=== PATIENT | male | born 2000 | race Caucasian/White ===

== ENCOUNTER 2022-02-24 00:24 | Outpatient (CLI) | payer OTHER, SELFPAY | END 2022-02-24 00:25 | disposition home or self-care (01) | LOC: AMB 03-23 13:36 | PROVIDERS: Visit Provider Family Medicine | DX: F10.129 Alcohol abuse with intoxication, unspecified (principal) | CPT/HCPCS: A0425; A0427 ==

== ENCOUNTER 2022-02-24 00:52 | Emergency (ER) | payer OTHER, SELFPAY ==
[2022-02-24] VITALS (9 sets, daily range): BP systolic 89–118; BP diastolic 52–89; PULSE 70–99; RESP 12–18; TEMP 37.1; O2SAT 88–100
[2022-02-24] MEDS: LACTATED RINGERS 1000 ML 1,000 ML 500 ML IV (00:59)
[2022-02-24] MEDS: ONDANSETRON 2 MG/ML inj 4 MG IVP (00:59)
--- NOTE | 2022-02-24 01:19 | ED.NURSE ---
Sats down to 88% RA. Encouraged pt to breathe, but sats not improving. Pt placed on 2 LPM oxygen via NC. Sats up to 100%.
--- NOTE | 2022-02-24 03:30 | ED.NURSE ---
Pt takes off nasal cannula. Sats at 98% on room air. Discontinued oxygen.
--- NOTE | 2022-02-24 05:50 | ED_ITS ---
HPI - Alcohol General Chief Complaint: Alcohol/Intoxication Stated Complaint: ETOH Time Seen by Provider: 02/24/22 00:54 Source: patient and EMS Mode of arrival: EMS Limitations: no limitations History of Present Illness HPI narrative: Document created during EMR down time in Microsoft Word, paced into record Progress note on Manuel cortes 21-year-old male transitioning to female that presents to the emergency department by EMS.? He reports he started drinking Tequila around 10:00 p.m., arrives a little before 1:00 a.m..? Reports that he walked to a random [employer] party, announce that he had drank too much and requested that they call 911 which was done.? Of note walked in on his own accord to the constitution party and was conversing normally.? Reports he has been drinking Tequila, large amounts and throughout.? Denies any intent of self-harm.? Denies use of any illicit substances, edibles, marijuana, hallucinogens or mixing with any unusual prescriptions.? Does report that he takes an antidepressant but does not remember which 1.? Has vomited a few times at the constitution party and for EMS arrival.? EMS arrived they do place an IV and start some IV fluids and transport to the emergency department.? He is able answer my questions well.? Has not taken any anti nausea medicine, Tylenol, ibuprofen, no intent of self-harm.? Denies chronic alcoholism.? Past medical history states is notable for depression anxiety does see a provider through [facility] is prescribed an antidepressant.? Denies any surgeries, reports alcohol intoxication but with no illicit substances.? 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 ROS is notable for nausea and generally feeling unwell, denies any other concerns times 12 systems.? On exam, vital signs are stable.? No hypotension, tachycardia or fever.? Generally he is awake, alert not in distress.? Intoxicated with slight slurring and difficulty focusing on my face.? The head shows no signs of injury.? The eyes have pupils are equal round, reactive to light normal appearing extraocular movements.? The oropharynx with no signs of trauma.? Normal dentition.? Moist mucous membranes.? Lips are acyanotic.? The neck with normal range of motion.? Chest and clavicles without deformity.? Heart with regular rate rhythm, no murmurs rubs or gallops.? Lungs with good air entry in all lung jordan, no wheezes rales or rhonchi.? Abdomen is soft and nondistended liver and spleen are not enlarged.? No masses.? The extremities have no signs of edema.? Moves upper and lower extremities and rolls over on command with no difficulty.? No focal deficits.? Mood behavior and affect show mild intoxication but otherwise appropriate.? No agitation or combativeness. Hospital course:? Patient with signs of mild intoxication but no critical illness.? I recommend IV fluids, IV Zofran and observation. ?No lab studies or imaging recommended at this time will observe and monitor.? Anticipate but discharged back to [place] in a few hours. Assessment acute alcohol intoxication Plan:? IV fluids, Zofran anticipating discharge after reassessment.? Related Data Home Medications Medication Instructions Recorded Confirmed antidepressant 02/24/22 estradiol PO 02/24/22 Allergies Allergy/AdvReac Type Severity Reaction Status Date / Time No Known Drug Allergies Allergy Verified 02/24/22 04:26 [facility] Social History Smoking Status: Current every day smoker What tobacco products do you use: cigarettes Do you use any of these nicotine containing products: Vaping Products Second hand tobacco smoke exposure: No How often do you have a drink containing alcohol: 4 or more times a week How many standard drinks containing alcohol do you have on a typical day: 1 or 2 AUDIT-C Alcohol total score: 4 Non-prescribed substance use: denies use Exam Const: Vital Signs, click to edit/add: Vital Signs - 24 hr 02/24/22 00:52 02/24/22 00:53 02/24/22 01:19 Temperature 98.8 F Pulse Rate [Left P ulse Oximeter] 94 99 Respiratory Rate 16 16 Blood Pressure [Le ft Upper Arm] 118/89 117/85 Pulse Oximetry 99 100 88 Oxygen Delivery Me thod Room Air Room Air Room Air Oxygen Flow Rate 02/24/22 01:23 02/24/22 02:00 02/24/22 01:00 Temperature Pulse Rate [Left P ulse Oximeter] 77 95 Respiratory Rate 12 12 Blood Pressure [Le ft Upper Arm] 89/52 L 112/84 Pulse Oximetry 100 98 94 Oxygen Delivery Me thod Nasal Cannula Nasal Cannula Room Air Oxygen Flow Rate 2 2 02/24/22 03:00 02/24/22 04:00 02/24/22 01:23 Temperature Pulse Rate [Left P ulse Oximeter] 75 70 Respiratory Rate 12 12 Blood Pressure [Le ft Upper Arm] 104/68 Pulse Oximetry 99 98 100 Oxygen Delivery Me thod Nasal Cannula Room Air Nasal Cannula Oxygen Flow Rate 2 2 Course Vital Signs Vital signs: Initial Vital Signs Temperature 98.8 F 02/24/22 00:52 Temperature Source Temporal Artery Scan 02/24/22 00:52 Pulse Rate 94 02/24/22 00:52 Pulse Rhythm 02/24/22 00:52 Respiratory Rate 16 02/24/22 00:52 Blood Pressure 118/89 02/24/22 00:52 Blood Pressure Mean 98 02/24/22 00:52 Blood Pressure Position Semi-Fowlers 02/24/22 00:52 Pulse Oximetry 99 02/24/22 00:52 Oxygen Delivery Method 02/24/22 00:52 Vital Signs Temperature 98.8 F 02/24/22 00:52 Pulse Rate 94 02/24/22 00:52 Respiratory Rate 16 02/24/22 00:52 Blood Pressure 118/89 02/24/22 00:52 Pulse Oximetry 99 02/24/22 00:52 Oxygen Delivery Method 02/24/22 00:52 Temperature 98.8 F 02/24/22 00:52 Pulse Rate 70 02/24/22 04:00 Respiratory Rate 12 02/24/22 04:00 Blood Pressure 104/68 02/24/22 03:00 Pulse Oximetry 98 02/24/22 04:00 Oxygen Delivery Method 02/24/22 04:00 Oxygen Flow Rate 2 02/24/22 03:00 MDM - Alcohol MDM Narrative Medical decision making narrative: Patient observed, marked improvement in sobriety over a few hours. At the time of discharge, able to answer questions, ambulate to the bathroom without difficulty. Will call [employer] for right home. Discharge Plan Discharge Clinical Impression: Alcoholic intoxication Patient Disposition: Home, Self-Care Condition: Improved Instructions: Alcohol Intoxication (ED) Additional Instructions: Expected to have hangover symptoms today. It is okay to use Tylenol and/or ibuprofen. Drink lots of fluids. I wish you would not drink so much in 1 sitting. Be binge drinking can have long-term implications to your health and safety. Please talk to a counselor at your college if the drinking behaviors persist. Activity Level: No Restrictions Discharge Diet: Regular Prescriptions: No Action estradiol PO antidepressant Stand Alone Forms: [employer] Info Instructions
--- NOTE | 2022-02-24 06:34 | ED.NURSE ---
Pt awakened and up to bathroom, ambulatory. No pain or nausea reported. Pt states she feels much better.
== END 2022-02-24 06:50 | disposition home or self-care (01) ==
LOC: ED 06:48
PROVIDERS: Emergency Provider Family Medicine
DX: F10.129 Alcohol abuse with intoxication, unspecified (principal)
CPT/HCPCS: 96374; 99282; 99283; J2405; J7120

== ENCOUNTER 2022-08-09 04:06 | Emergency (ER) | payer OTHER, SELFPAY ==
[2022-08-09 04:17] VITALS: BP 112/61; PULSE 77; RESP 18; TEMP 36.3; O2SAT 99; BMI 19.9
[2022-08-09] MEDS: 0.9 % SODIUM CHLORIDE 1000 ml 1,000 ML 500 ML IV (05:00)
[2022-08-09] MEDS: KETOROLAC 30 MG/ML inj IVP (05:00)
[2022-08-09 05:03] LABS: Basophils Percent Auto 0.4 % (0.0-3.0); Eosinophils Percent Auto 1.4 % (0.0-7.0); Hemoglobin* 11.7 gm/dL (13.5-17.5); Immature Granulocytes Pct Auto 0.1 %; Lymphocytes Percent Auto 24.5 % (20-44); Mean Corpuscular HGB Conc 33 gm/dL (32-36); Mean Corpuscular Hemoglobin 30 pg (26-34); Mean Corpuscular Volume 90 fL (80-100); Monocytes Percent Auto 7.6 % (0.0-11.0); Platelet Count* 343 K/uL (140-440); RDW Coefficient of Variation % 12.3 % (11.5-15.5); Red Blood Count 3.88 m/uL (4.30-5.90); White Blood Count* 14.82 K/uL (4.50-11.00)
[2022-08-09 05:07] LABS: Slide Review Reflex No
--- NOTE | 2022-08-09 05:13 | ED_ITS ---
HPI - General Adult General Date Seen: 08/09/22 Chief complaint: Abdominal Pain Stated complaint: abdominal pain & back pain Time Seen by Provider: 08/09/22 04:33 Source: patient Mode of arrival: ambulatory Limitations: no limitations History of Present Illness HPI narrative: Patient is a 21-year-old male who has been having abdominal pain intermittently for the past several months. This typically comes on if he eats something fatty or greasy. Both of his parents have had cholecystectomies. He denies symptoms of acid reflux. When he gets this pain he typically makes himself vomit and that seems to help. He denies diarrhea or constipation. No hematemesis. Today he ate peanut butter and drank whole milk but did not have anything else. No fevers or chills. No dysuria. He has never had a gallbladder ultrasound. Other than his antidepressant and his hormone therapy he does not take any other medications regularly. He is transitioning male to female. Related Data Home Medications Medication Instructions Recorded Confirmed antidepressant 02/24/22 estradiol PO 02/24/22 estradiol valerate 40 mg/mL mg IM 08/09/22 intramuscular oil progesterone micronized 200 mg 200 mg PO QPM 08/09/22 08/09/22 capsule Allergies Allergy/AdvReac Type Severity Reaction Status Date / Time No Known Drug Allergies Allergy Verified 02/24/22 04:26 Review of Systems Narrative: Review of systems is as outlined above otherwise noted to be negative. PFSH PFSH Social History Smoking Status: Former smoker What tobacco products do you use: cigarettes Smoking quit date/years: <= 15 years ago Do you use any of these nicotine containing products: Vaping Products Second hand tobacco smoke exposure: No How often do you have a drink containing alcohol: 4 or more times a week How many standard drinks containing alcohol do you have on a typical day: 1 or 2 AUDIT-C Alcohol total score: 4 Non-prescribed substance use: marijuana (any form) service: No Exam Narrative: Exam Narrative: Vitals noted. He is restless. HEENT: Conjunctiva clear. Neck is supple without adenopathy, thyromegaly, ca rotid bruit. Lungs: Clear to auscultation in all jordan. No wheezes, rales, rhonchi. Heart: Regular rate and rhythm without murmur. Abdomen: Soft and nontender. No guarding, rigidity, rebound. Bowel sounds are normal. No palpable masses. Extremities: No cyanosis or edema. Good distal pulses. Skin: No abnormalities noted of the exposed skin. Neurologic: Awake, alert, fully oriented. Neurologic exam is nonfocal. Const: Vital Signs, click to edit/add: Vital Signs - 24 hr 08/09/22 04:17 08/09/22 07:11 Temperature 97.4 F L Pulse Rate [Pulse Oximeter] 77 66 Respiratory Rate 18 18 Blood Pressure [Le ft Upper Arm] 112/61 113/71 Pulse Oximetry 99 98 Oxygen Delivery Me thod Room Air Room Air Course Course Hospital Course: Patient is seen and examined. He is restless and uncomfortable. Labs are ordered. Reevaluation(s) Reevaluation #1: Patient feels better after the fluids and Toradol. The labs have all returned normal. We discussed a gallbladder ultrasound could be set up by her PCP. Vital Signs Vital signs: Initial Vital Signs Temperature 97.4 F L 08/09/22 04:17 Temperature Source Temporal Artery Scan 08/09/22 04:17 Pulse Rate 77 08/09/22 04:17 Pulse Rhythm Regular 08/09/22 04:17 Respiratory Rate 18 08/09/22 04:17 Blood Pressure 112/61 08/09/22 04:17 Blood Pressure Mean 78 08/09/22 04:17 Pulse Oximetry 99 08/09/22 04:17 Oxygen Delivery Method Room Air 08/09/22 04:17 Vital Signs Temperature 97.4 F L 08/09/22 04:17 Pulse Rate 77 08/09/22 04:17 Respiratory Rate 18 08/09/22 04:17 Blood Pressure 112/61 08/09/22 04:17 Pulse Oximetry 99 08/09/22 04:17 Oxygen Delivery Method Room Air 08/09/22 04:17 Temperature 97.4 F L 08/09/22 04:17 Pulse Rate 66 08/09/22 07:11 Respiratory Rate 18 08/09/22 07:11 Blood Pressure 113/71 08/09/22 07:11 Pulse Oximetry 98 08/09/22 07:11 Oxygen Delivery Method Room Air 08/09/22 07:11 Medical Decision Making Lab Data Labs: Lab Results 08/09/22 08/09/22 Range/Units 04:50 04:57 WBC 14.82 H (4.50-11.00) K/uL RBC 3.88 L (4.30-5.90) m/uL Hgb 11.7 L (13.5-17.5) gm/dL Hct 35.0 L (37.0-53.0) % MCV 90 (80-100) fL MCH 30 (26-34) pg MCHC 33 (32-36) gm/dL RDW Coeff of Ana Luisa 12.3 (11.5-15.5) % Plt Count 343 (140-440) K/uL Neut % (Auto) 66.0 (42.0-72.0) % Lymph % (Auto) 24.5 (20-44) % [place] % (Auto) 7.6 (0.0-11.0) % Eos % (Auto) 1.4 (0.0-7.0) % Baso % (Auto) 0.4 (0.0-3.0) % Neut # (Auto) 9.80 H (1.7-7.0) K/uL Lymph # (Auto) 3.60 H (0.90-2.90) K/uL [place] # (Auto) 1.10 H (0.00-0.90) K/UL Eos # (Auto) 0.20 (0.00-0.50) K/uL Baso # (Auto) 0.10 (0.00-0.30) K/uL Sodium 138 (135-149) mmol/L Potassium 3.5 L (3.6-5.1) mmol/L Chloride 106 (96-114) mmol/L Carbon Dioxide 26 (20-32) mmol/L BUN 17 (5-24) mg/dL Creatinine 0.6 (0.5-1.5) mg/dL Estimated Creat Clear 192.04 Estimated GFR 140 ml/min Glucose 99 (60-115) mg/dL Calcium 8.7 (8.4-10.6) mg/dL Total Bilirubin 0.5 (0.1-1.5) mg/dL Direct Bilirubin 0.1 (0.0-0.5) mg/dL AST 18 (12-35) U/L ALT 15 (4-50) U/L Alkaline Phosphatase 77 (40-150) U/L Total Protein 7.4 (6.0-8.3) g/dL Albumin 4.1 (3.3-5.0) g/dL Lipase 83 (23-300) U/L Discharge Plan Discharge Clinical Impression: Abdominal pain Patient Disposition: Home, Self-Care Condition: Improved Instructions: Abdominal Pain (ED) Additional Instructions: Avoid spicy or greasy foods. Set up an appt at the clinic to discuss a gallbladder Ultrasound. Prescriptions: No Action estradiol PO antidepressant progesterone micronized 200 mg capsule 200 mg PO QPM estradiol valerate 40 mg/mL oil IM Follow Up/Referrals: Provider,Not a Local [Primary Care Provider] - Stand Alone Forms: [employer] Info Instructions
[2022-08-09 05:18] LABS: Albumin* 4.1 g/dL (3.3-5.0); Chloride* 106 mmol/L (96-114); Potassium* 3.5 mmol/L (3.6-5.1); Sodium* 138 mmol/L (135-149)
[2022-08-09 05:20] LABS: Creatinine* 0.6 mg/dL (0.5-1.5); Est. Creatinine Clearance* 192.04; Estimated Glomerular Filt Rate 140 ml/min
[2022-08-09 05:21] LABS: Alanine Aminotransferase* 15 U/L (4-50); Alkaline Phosphatase* 77 U/L (40-150); Aspartate Amino Transferase* 18 U/L (12-35); Bilirubin Direct* 0.1 mg/dL (0.0-0.5); Bilirubin Total* 0.5 mg/dL (0.1-1.5); Blood Urea Nitrogen* 17 mg/dL (5-24); Calcium* 8.7 mg/dL (8.4-10.6); Carbon Dioxide* 26 mmol/L (20-32); Glucose* 99 mg/dL (60-115); Lipase* 83 U/L (23-300); Total Protein* 7.4 g/dL (6.0-8.3)
[2022-08-09 07:11] VITALS: BP 113/71; PULSE 66; RESP 18; O2SAT 98
== END 2022-08-09 07:14 | disposition home or self-care (01) ==
PROVIDERS: Emergency Provider Family Medicine
DX: R10.9 Unspecified abdominal pain (principal)
CPT/HCPCS: 36415; 80048; 80076; 83690; 85025; 96361; 96374; 99282; 99284; J1885; J7030

== ENCOUNTER 2022-08-13 15:40 | Outpatient (CLI) | payer OTHER, SELFPAY | END 2022-08-13 15:41 | disposition home or self-care (01) | PROVIDERS: Visit Provider Internal Medicine | DX: R10.11 Right upper quadrant pain (principal); Z78.9 Other specified health status | CPT/HCPCS: 82671; 84144 ==

== ENCOUNTER 2022-09-26 01:49 | Emergency (ER) | payer OTHER, SELFPAY ==
--- NOTE | 2022-09-26 02:00 | ED_ITS ---
HPI - General Adult General Date Seen: 09/26/22 Chief complaint: Abdominal Pain Stated complaint: Gallstone pain Time Seen by Provider: 09/26/22 02:00 Source: patient, RN notes reviewed and old records reviewed Mode of arrival: ambulatory Limitations: no limitations History of Present Illness HPI narrative: Mari is a very pleasant 21-year-old biological male transitioning to female preferring she/her pronouns with a history of cholelithiasis and planned cholecystectomy today who comes to the emergency room for evaluation regarding abdominal pain. Patient notes that she received an ultrasound 1 month ago and is going to take the gallbladder out this morning. A few hours ago she awoke with nausea and abdominal pain and proceeded to the emergency room. Of note start has also been experiencing cold-like symptoms and did have a fever yesterday. She has had some coughing but no shortness of breath or chest pain. She did not do a home test. Abdominal pain is in the epigastric and right upper quadrant area. Not radiating at this time. It is associated with nausea. She has not tried any pain medications at home. Related Data Home Medications Medication Instructions Recorded Confirmed estradiol PO 02/24/22 08/28/22 estradiol valerate 40 mg/mL mg IM 08/09/22 08/28/22 intramuscular oil progesterone micronized 200 mg 200 mg PO QPM 08/09/22 08/28/22 capsule Previous Rx's Medication Instructions Recorded escitalopram oxalate 10 mg tablet 10 mg PO QDAY #7 tabs 08/28/22 (Lexapro) escitalopram oxalate 20 mg tablet 20 mg PO QDAY #90 tabs 08/28/22 (Lexapro) estradiol 2 mg tablet 2 mg PO QDAY 3 months #90 tabs 08/28/22 amoxicillin 875 mg-potassium 1 tab PO BID #30 tabs 09/26/22 clavulanate 125 mg tablet hydrocodone 5 mg-acetaminophen 325 1 tab PO Q4-6H PRN pain #10 tabs 09/26/22 mg tablet ondansetron 4 mg disintegrating 4 mg PO Q8H PRN nausea and 09/26/22 tablet vomiting #10 tabs Allergies Allergy/AdvReac Type Severity Reaction Status Date / Time No Known Drug Allergies Allergy Verified 08/28/22 13:39 Review of Systems Status of ROS: Reports: 10 or more systems reviewed and unremarkable except as noted in History and below Const: Reports: fever; Denies: chills or fatigue ENMT: Reports: nasal congestion; Denies: throat pain, neck pain, throat swelling, difficulty swallowing or hoarseness Cardio: Denies: chest pain, swelling of feet/ankles or shortness of breath with exertion Resp: Reports: cough; Denies: shortness of breath GI: Reports: abdominal pain and nausea; Denies: vomiting, diarrhea or difficulty swallowing : Denies: painful urination Musculo: Denies: back pain or neck pain Integ/Breast: Denies: rash Neuro: Denies: headache Endo: Denies: fatigue Allergy/Immuno: Denies: throat swelling PFSH PFSH Medical History Current every day cannabis vaping ?F12.90 - Cannabis use, unspecified, uncomplicated (ICD-10) Major depression ?F32.9 - Major depressive disorder, single episode, unspecified (ICD-10) Generalized anxiety disorder ?F41.1 - Generalized anxiety disorder (ICD-10) Transgender ?Z78.9 - Other specified health status (ICD-10) Surgical History History of surgery (03/2020) ?Z98.890 - Other specified postprocedural states (ICD-10) H/O pelvic surgery (06/2019) ?Z98.890 - Other specified postprocedural states (ICD-10) Family History Father Depression Other Alcohol dependence Diabetes High blood pressure High cholesterol Social History Narrative: Single, works at [employer], no kids Lifetime nonsmoker No alcohol use Daily marijuana use Smoking Status: Former smoker What tobacco products do you use: cigarettes Smoking quit date/years: <= 15 years ago Do you use any of these nicotine containing products: Vaping Products Second hand tobacco smoke exposure: No How often do you have a drink containing alcohol: 4 or more times a week How many standard drinks containing alcohol do you have on a typical day: 1 or 2 AUDIT-C Alcohol total score: 4 Non-prescribed substance use: marijuana (any form) Little interest or pleasure in doing things: more than half the days Feeling down, depressed, or hopeless: several days service: No Exam Narrative: Exam Narrative: Alert and oriented. No acute distress. External ears eyes nose clear. Oral cavity with moist mucous membranes. Lips are moist. Neck is supple. Heart with regular rate and rhythm and lungs are clear bilaterally. Abdomen with epigastric and right upper quadrant discomfort with palpation. No masses palpated. No abdominal distension. Abdomen is otherwise soft. Lower extremities without edema. Const: Vital Signs, click to edit/add: Vital Signs - 24 hr 09/26/22 02:14 09/26/22 06:00 Temperature 97.5 F L Pulse Rate [Right Pulse Oximeter] 75 70 Respiratory Rate 16 16 Blood Pressure [Ri ght Upper Arm] 118/80 120/54 L Pulse Oximetry 99 100 Oxygen Delivery Me thod Room Air Room Air Documenting provider has reviewed patient's vital signs: yes Course Course Hospital Course: At this time patient has surgery scheduled for this morning. Will continue NPO status, place IV and give 1 L of fluids, Toradol 15 mg and Zofran 4 mg. Will check labs this morning to include CBC, comprehensive panel, CRP, and lipase. In terms of the recent illness will do chest x-ray and COVID swab. Reevaluation(s) Reevaluation #1: White count is normal but CRP is elevated at 3.4. Chest x-ray shows no evidence of pneumonia. Potassium low at 3.1. Other LFTs within normal limits. Given the increasing pain, known evidence of stones will treat patient with Zosyn 3.375 g IV. Potassium 40 mEq p.o. Vital Signs Vital signs: Initial Vital Signs Temperature 97.5 F L 09/26/22 02:14 Temperature Source Temporal Artery Scan 09/26/22 02:14 Pulse Rate 75 09/26/22 02:14 Pulse Rhythm Regular 09/26/22 02:14 Respiratory Rate 16 09/26/22 02:14 Blood Pressure 118/80 09/26/22 02:14 Blood Pressure Mean 92 09/26/22 02:14 Blood Pressure Position Sitting 09/26/22 02:14 Pulse Oximetry 99 09/26/22 02:14 Oxygen Delivery Method Room Air 09/26/22 02:14 Vital Signs Temperature 97.5 F L 09/26/22 02:14 Pulse Rate 75 09/26/22 02:14 Respiratory Rate 16 09/26/22 02:14 Blood Pressure 118/80 09/26/22 02:14 Pulse Oximetry 99 09/26/22 02:14 Oxygen Delivery Method Room Air 09/26/22 02:14 Temperature 97.5 F L 09/26/22 02:14 Pulse Rate 70 09/26/22 06:00 Respiratory Rate 16 09/26/22 06:00 Blood Pressure 120/54 L 09/26/22 06:00 Pulse Oximetry 100 09/26/22 06:00 Oxygen Delivery Method Room Air 09/26/22 06:00 Medical Decision Making MDM Narrative Medical decision making narrative: 1. Cholelithiasis-now with increasing pain and elevated CRP. Will treat with Zosyn 3.375 g IV. Will alert OR staff to patient's presence in the ED. patient was supposed to present at 0615. LFTs within normal limits. 2. Recent cold congestion-patient does test positive for COVID. O2 sats within normal limits. Recommend deep breathing, sleeping prone or on her side. Seek medical attention for shortness of breath or respiratory distress. 3. Disposition-admit to same-day surgery. Will plan on speaking to the surgeon for patient upon their arrival. In patient's COVID positive status, surgery and anesthesia feel would be best to delay patient's surgery for 4 weeks. Patient is feeling much improved and will be discharged home at this time. Patient did receive Zosyn in the ED and will continue on Augmentin 875 p.o. b.i.d.. I have given her 15 days worth of medications. She will need to follow-up or contact surgery for continued antibiotic if needed. Pain will be controlled with ibuprofen 600 mg p.o. t.i.d. p.r.n.. For continued pain hydrocodone/acetaminophen 5/325 1-2 tabs p.o. q.4-6 hours p.r.n. 10. Issued. Further pain medications will need to go through primary MD or surgery. Finally Zofran 4 mg ODT Q 8 hours p.r.n. 10. Via a pharmacy. Discussed with patient's importance of returning to the ER for fever, persistent vomiting, increasing pain, worsening symptoms. In spite of her COVID she may need to have the gallbladder out sooner rather than later. She does appear to understand this. Medical Records Medical records reviewed: Yes I reviewed the patient's medical records Lab Data Lab results reviewed: Yes I reviewed the patient's lab results Labs: Lab Results 09/26/22 Range/Units 03:20 WBC 5.64 (4.50-11.00) K/uL RBC 4.08 L (4.30-5.90) m/uL Hgb 12.2 L (13.5-17.5) gm/dL Hct 36.6 L (37.0-53.0) % MCV 90 (80-100) fL MCH 30 (26-34) pg MCHC 33 (32-36) gm/dL RDW Coeff of Ana Luisa 11.9 (11.5-15.5) % Plt Count 159 (140-440) K/uL Neut % (Auto) 69.8 (42.0-72.0) % Lymph % (Auto) 15.6 L (20-44) % [place] % (Auto) 14.0 H (0.0-11.0) % Eos % (Auto) 0.2 (0.0-7.0) % Baso % (Auto) 0.4 (0.0-3.0) % Neut # (Auto) 3.94 (1.7-7.0) K/uL Lymph # (Auto) 0.90 (0.90-2.90) K/uL [place] # (Auto) 0.80 (0.00-0.90) K/UL Eos # (Auto) 0.01 (0.00-0.50) K/uL Baso # (Auto) 0.02 (0.00-0.30) K/uL Sodium 138 (135-149) mmol/L Potassium 3.1 L (3.6-5.1) mmol/L Chloride 105 (96-114) mmol/L Carbon Dioxide 22 (20-32) mmol/L BUN 9 (5-24) mg/dL Creatinine 0.9 (0.5-1.5) mg/dL Estimated GFR 124 ml/min Glucose 100 (60-115) mg/dL Calcium 8.7 (8.4-10.6) mg/dL Total Bilirubin 0.7 (0.1-1.5) mg/dL AST 27 (12-35) U/L ALT 27 (4-50) U/L Alkaline Phosphatase 84 (40-150) U/L C-Reactive Protein 3.4 H (0.5-1.0) mg/dL Total Protein 7.5 (6.0-8.3) g/dL Albumin 4.3 (3.3-5.0) g/dL Lipase 98 (23-300) U/L SARS-CoV-2 (PCR) POSITIVE SARS-CoV-2 A (Negative) Influenza Type A (PCR) Negative PCR FLU A (Negative) Influenza Type B (PCR) Negative PCR FLU B (Negative) RSV (PCR) Negative PCR RSV (Negative) Imaging Data Chest x-ray: Attestation: I have reviewed the pertinent imaging results. My impression: I do not note any infiltrates. Radiologist's impression: Cardiovascular and mediastinum: Heart size and vasculature are normal in caliber and appearance.? Mediastinum is within normal limits.? Lungs and pleural space: Lungs are clear.? No sign of infiltrate or mass.? No sign of pleural effusion.? No pneumothorax.? Bones and soft tissues: No significant findings. Discharge Plan Discharge Clinical Impression: COVID Abdominal pain Qualifiers: Abdominal location: right upper quadrant Qualified Code(s): R10.11 - Right upper quadrant pain Cholelithiasis Qualifiers: Cholelithiasis location: gallbladder Cholecystitis presence: without cholecystitis Biliary obstruction: without biliary obstruction Qualified Code(s): K80.20 - Calculus of gallbladder without cholecystitis without obstruction Patient Disposition: Home, Self-Care Condition: Improved Additional Instructions: At this time current guidelines suggest waiting at least 4 weeks after an active COVID infection for surgery. We are going to try to treat you with antibiotics, anti nausea medication and pain medication in an effort to avoid surgery as long as possible. For pain you may use ibuprofen 600 mg every 8 hours as needed. For pain that is persistent, please use Honeydew which is a combination medication of Tylenol and a narcotic called hydrocodone. This can be addictive so use sparingly and only as needed. Zofran is an anti nausea medication that may be used for nausea or vomiting. Finally, will use Augmentin as an antibiotic. You will receive a call from the surgery clinic to reschedule your surgery. If you start developing high fever, continued pain, persistent vomiting you will need to come back to the emergency room for evaluation. For COVID, try to sleep on your stomach or side. Seek medical attention for difficulty breathing and as needed. Prescriptions: New ondansetron 4 mg tablet,disintegrating 4 mg PO Q8H PRN (Reason: nausea and vomiting) Qty: 10 0RF amoxicillin-pot clavulanate 875-125 mg tablet 1 tab PO BID Qty: 30 0RF hydrocodone-acetaminophen 5-325 mg tablet 1 tab PO Q4-6H PRN (Reason: pain) Qty: 10 0RF Rx Instructions: You may use 1-2 tabs every 4-6 hours as needed. No Action estradiol 2 mg tablet 2 mg PO QDAY 90 Days Qty: 90 1RF Rx Instructions: off 1 week; repeat cycle escitalopram oxalate [Lexapro] 10 mg tablet 10 mg PO QDAY Qty: 7 0RF escitalopram oxalate [Lexapro] 20 mg tablet 20 mg PO QDAY Qty: 90 4RF Rx Instructions: Begin after finishing 10 mg / day dose estradiol PO progesterone micronized 200 mg capsule 200 mg PO QPM estradiol valerate 40 mg/mL oil IM Follow Up/Referrals: Maria Dolores Thao MD [Primary Care Provider] - Stand Alone [facility]: [facility] Info Inst[facility]
[2022-09-26 02:14] VITALS: BP 118/80; PULSE 75; RESP 16; TEMP 36.4; O2SAT 99
--- NOTE | 2022-09-26 02:44 | CRLHL7_ITS ---
For Patients: As a result of the Century Cures Act, medical imaging exams and procedure reports are released immediately into your electronic medical record. You may view this report before your referring provider. If you have questions, please contact your health care provider. Indication: Cough Technique: Chest 1 view Comparison: None Findings/Impression: Cardiovascular and mediastinum: Heart size and vasculature are normal in caliber and appearance. Mediastinum is within normal limits. Lungs and pleural space: Lungs are clear. No sign of infiltrate or mass. No sign of pleural effusion. No pneumothorax. Bones and soft tissues: No significant findings. Dictated by Rica Forbes MD @ 09/26/2022 4:02:16 AM (Electronically Signed)
[2022-09-26] MEDS: ONDANSETRON 2 MG/ML inj 4 MG IVP (03:24)
[2022-09-26] MEDS: 0.9 % SODIUM CHLORIDE 1000 ml 1,000 ML IV (03:24)
[2022-09-26] MEDS: KETOROLAC 15 MG/ML inj IVP (03:24)
[2022-09-26 03:40] LABS: Basophils Absolute Auto 0.02 K/uL (0.00-0.30); Basophils Percent Auto 0.4 % (0.0-3.0); Eosinophils Absolute Auto 0.01 K/uL (0.00-0.50); Eosinophils Percent Auto 0.2 % (0.0-7.0); Hematocrit 36.6 % (37.0-53.0); Hemoglobin* 12.2 gm/dL (13.5-17.5); Lymphocytes Percent Auto 15.6 % (20-44); Mean Corpuscular HGB Conc 33 gm/dL (32-36); Mean Corpuscular Hemoglobin 30 pg (26-34); Mean Corpuscular Volume 90 fL (80-100); Neutrophils Absolute Auto 3.94 K/uL (1.7-7.0); Neutrophils Percent Auto 69.8 % (42.0-72.0); Platelet Count* 159 K/uL (140-440); RDW Coefficient of Variation % 11.9 % (11.5-15.5); Red Blood Count 4.08 m/uL (4.30-5.90); White Blood Count* 5.64 K/uL (4.50-11.00)
[2022-09-26 03:43] LABS: Slide Review Reflex No
[2022-09-26 03:53] LABS: Albumin* 4.3 g/dL (3.3-5.0); Chloride* 105 mmol/L (96-114); Sodium* 138 mmol/L (135-149)
[2022-09-26 03:54] LABS: Potassium* 3.1 mmol/L (3.6-5.1)
[2022-09-26 03:56] LABS: Alkaline Phosphatase* 84 U/L (40-150); Aspartate Amino Transferase* 27 U/L (12-35); Bilirubin Total* 0.7 mg/dL (0.1-1.5); Carbon Dioxide* 22 mmol/L (20-32); Creatinine* 0.9 mg/dL (0.5-1.5); Estimated Glomerular Filt Rate 124 ml/min; Total Protein* 7.5 g/dL (6.0-8.3)
[2022-09-26 03:57] LABS: Alanine Aminotransferase* 27 U/L (4-50); Blood Urea Nitrogen* 9 mg/dL (5-24); Calcium* 8.7 mg/dL (8.4-10.6); Glucose* 100 mg/dL (60-115); Lipase* 98 U/L (23-300)
[2022-09-26 03:59] LABS: C Reactive Protein* 3.4 mg/dL (0.5-1.0)
[2022-09-26 04:18] LABS: PCR FLU A Negative PCR FLU A (Negative); PCR FLU B Negative PCR FLU B (Negative); PCR RSV Negative PCR RSV (Negative)
[2022-09-26 04:29] LABS: SARS PCR* POSITIVE SARS-CoV-2 (Negative)
[2022-09-26] MEDS: PIPERACILLIN/TAZOBACTAM 3.375 GM in 0.9 % SODIUM CHLORIDE Mini-bag 100 ML IVPB (04:31)
[2022-09-26] MEDS: POTASSIUM CHLORIDE 10 MEQ CAPSULE ER 40 MEQ PO (04:31)
[2022-09-26 06:00] VITALS: BP 120/54; PULSE 70; RESP 16; O2SAT 100
== END 2022-09-26 06:37 | disposition home or self-care (01) ==
PROVIDERS: Emergency Provider Family Medicine; PCP Obstetrics & Gynecology
DX: K80.20 Calculus of gallbladder without cholecystitis without obstruction (principal); U07.1 COVID-19
CPT/HCPCS: 36415; 71045; 80053; 83690; 85025; 86140; 87631; 96365; 96375; 99284; A9270; J1885; J2405; J2543; J7030

== ENCOUNTER 2022-10-24 07:14 | Day surgery (SDC) | payer OTHER, SELFPAY ==
[2022-10-24] VITALS (10 sets, daily range): BP systolic 109–126; BP diastolic 65–81; PULSE 62–79; RESP 13–16; TEMP 36.6–36.8; O2SAT 97–100; BMI 20.5
[2022-10-24] MEDS: LACTATED RINGERS 1000 ML 1,000 ML 100 ML IV ×2 (07:10→09:15)
[2022-10-24] MEDS: SODIUM CHLORIDE 0.9 % (FLUSH) 10 ML SYRINGE IVF (07:37)
[2022-10-24] MEDS: CEFAZOLIN 1 GM inj IVP (08:20)
--- NOTE | 2022-10-24 08:42 | W.ANESCHARGE ---
Anesthesia Charges Start Date/Time Anesthesia Start Date: 10/24/22 Anesthesia Start Time: 08:12 Stop Date/Time Anesthesia Stop Date: 10/24/22 Anesthesia Stop Time: 10:23
[2022-10-24] MEDS: BUPIVACAINE 0.5% 30 ML INJECTION (09:56)
--- NOTE | 2022-10-24 10:00 | PM.GSPRC ---
Operative Note Date of procedure: 10/24/22 Pre-op diagnosis: Biliary colic Post-op diagnosis: Same Type of Procedure: Laparoscopic cholecystectomy Indications: Patient is a 22-year-old who presented to clinic with clinical workup in symptoms consistent with biliary colic. Risks and benefits of operative intervention were discussed at length with the patient. Risks included but was not limited to: Bleeding, infection, risk of damage to surrounding structures, possible need for additional procedures, possible need to convert to an open operation and postoperative complications such as pneumonia, pulmonary emboli or [place]. All questions and concerns were addressed with the patient agreeing to proceed. Procedure Description: After discussing the risks and benefits of the procedure, the patient signed informed consent.? The operative site was marked and the patient was brought to the operating room and placed on the operating table in supine position.? Care was taken to pad the patient's pressure points.?? The patient was then intubated by anesthesia.?? The operative site was then prepped and draped in the usual sterile fashion.? A time-out was then performed. Entrance to the abdomen was gained via a 5 mm Visiport in the left upper quadrant. The abdomen was insufflated and briefly surveyed for signs of injury. There was none. 11 mm umbilical port was placed as well as 2 working ports along the right costal margin. Patient was then placed in reverse Trendelenburg position with the right side up. The gallbladder fundus was grasped and retracted cephalad. A small amount of dissection was needed to free omental adhesions from the gallbladder. The infundibulum was grasped. A combination of hook cautery and blunt dissection was used to carefully dissect out the cystic duct and artery until they could clearly be seen entering the gallbladder without any intervening structures. There were prominent veins in the peritoneum. Several clips were applied to these before they were transected to assist with hemostasis. The gallbladder was dissected off the cystic plate to achieve the critical view. Once this was achieved the cystic duct and artery were each clipped with 2 clips proximally and 1 clip distally and transected with the scissors. A small amount of bleeding was noted off of the cystic duct. This was controlled with pressure and Surgicel, which was left within the abdomen. After these measures hemostasis was excellent. The gallbladder was then taken off of the liver bed. And removed from the abdomen using an Endo-Catch bag. The ports were then removed under direct vision. The umbilical port fascia was closed with 0 Vicryl. The skin was closed with absorbable subcuticular suture. Instrument sponge and needle counts were correct at the end of the case. The patient was then woken and transferred to the PACU in stable condition. Findings: Cholelithiasis Anesthesia: [place] Surgeon: Estelle Kinney MD Estimated blood loss (mL): 10 Specimen: Gallbladder Condition: stable Disposition: PACU
--- NOTE | 2022-10-24 10:26 | W.ANESCHARGE ---
Anesthesia Charges Start Date/Time Anesthesia Start Date: 10/24/22 Anesthesia Start Time: 08:12 Stop Date/Time Anesthesia Stop Date: 10/24/22 Anesthesia Stop Time: 10:23
[2022-10-24] MEDS: ONDANSETRON 2 MG/ML inj 4 MG IVP (11:00)
== END 2022-10-24 12:03 | disposition home or self-care (01) ==
PROVIDERS: PCP Obstetrics & Gynecology; Visit Provider Surgery
PROC: 0FT44ZZ Resection of Gallbladder, Percutaneous Endoscopic Approach (ICD-10-PCS; CPT 47562; principal; 2022-10-24 08:30)
DX: K80.10 Calculus of gallbladder with chronic cholecystitis without obstruction (principal)
CPT/HCPCS: 47562; 00790; 88304; J0330; J0665; J0690; J1100; J1170; J1885; J2250; J2405; J2704; J2710; J3010; J7120

== ENCOUNTER 2022-12-11 09:30 | Outpatient (CLI) | payer OTHER, SELFPAY | END 2022-12-11 09:31 | disposition home or self-care (01) | LOC: NFLDREF 09:31 | PROVIDERS: PCP Obstetrics & Gynecology; Visit Provider Obstetrics & Gynecology | DX: F64.9 Gender identity disorder, unspecified (principal) | CPT/HCPCS: 82670 ==